=== PATIENT | female | born 1940 | race Caucasian/White ===

== ENCOUNTER 2017-02-01 21:55 | Emergency (ER) | payer OTHER ==
[2017-02-01] MEDS ORDERED: DOPamine 400mg/250ml D5W 400 MG/250 ML BAG IV ONE (22:06)
[2017-02-01 22:07] VITALS: BMI 33.3
[2017-02-01] MEDS ORDERED: Sodium Chloride 0.9% 1,000 ML IV STA (22:07)
[2017-02-01 22:26] LABS: BASO # 0.1 K/uL (0.0-0.2); BASO % 0.9 % (0.0-2.0); EOS # 0.1 K/uL (0.0-0.7); EOS % 0.5 % (0.0-4.0); HEMATOCRIT 35.7 % (34.0-47.0); LYMPH # 5.5 K/uL (1.0-4.3); LYMPH % 48.1 % (20.0-40.0); MEAN CELL VOLUME 96.6 fl (81.0-99.0); MEAN CORPUSCULAR HEMOGLOBIN 27.8 pg (27.0-31.0); MEAN CORPUSCULAR HGB CONC 28.8 g/dL (33.0-37.0); MEAN PLATELET VOLUME 8.8 fl (7.2-11.7); MONO # 0.4 K/uL (0.0-0.8); MONO % 3.2 % (0.0-10.0); NEUT # 5.4 K/uL (1.8-7.0); NEUT % 47.3 % (50.0-75.0); NRBC % 0.1 % (0.0-0.0); RED CELL DISTRIBUTION WIDTH 18.1 % (11.5-14.5); WHITE BLOOD COUNT 11.5 K/uL (4.8-10.8)
[2017-02-01 22:33] LABS: BILIRUBIN,TOTAL 0.4 mg/dl (0.2-1.3); CALCIUM 10.5 mg/dL (8.4-10.2); TOTAL PROTEIN 4.7 G/DL (6.3-8.2)
[2017-02-01 22:35] LABS: POTASSIUM 6.2 MMOL/L (3.6-5.0)
[2017-02-01 22:44] LABS: TROPONIN I 0.06 ng/mL (0.00-0.120)
--- NOTE | 2017-02-01 22:49 | ED PDOC ---
HPI: Cardiac Arrest Time Seen by Provider: 02/01/17 22:28 Chief Complaint (Nursing): Cardiac Arrest Chief Complaint (Provider): cardiac arrest History Per: EMS Reason For Code Blue: Full Arrest Medications Given Prior To MD Arrival: Epinephrine (x4), Sodium Bicarb, Other ( Calcium) - Initial Findings Mentation: Unresponsive Respirations: None (Assisted) Pulse: None Rhythm: PEA (paced rhythm) Past Medical History - Medical History PMH: Anemia, Arthritis, Atrial Fibrillation, Cardia Arrhythmia, Diabetes, HTN, Hypercholesterolemia, Hypothyroidism Denies: Crohn's Disease, Diverticulitis, Fractures, Gastritis, Gall Bladder Disease, HIV, Pancreatitis, Chronic Kidney Disease - Surgical History Surgical History: Pacemaker - Family History Family History: States: Unknown Family Hx - Immunization History Hx Tetanus Toxoid Vaccination: No Hx Influenza Vaccination: No Hx Pneumococcal Vaccination: No - Home Medications Home Medications: Ambulatory Orders Medication Instructions Recorded Bimatoprost [Lumigan] 1 drop OU HS 12/12/16 Febuxostat [Uloric] 40 mg PO DAILY 12/12/16 Folic Acid 1 mg PO DAILY #30 tab 12/22/16 Docusate [Colace] 100 mg PO BID 12/23/16 MetFORMIN [glucoPHAGE] 1,000 mg PO BID 12/23/16 Aspirin [Aspirin Chewable] 81 mg PO DAILY 12/30/16 Brimonidine 0.2% [Alphagan 0.2% 0 ml OU TID #1 bottle 12/30/16 Opht] Rosuvastatin Calcium [Crestor] 10 mg PO HS #30 tab 12/30/16 Ferrous Sulfate [Feosol] 325 mg PO DAILY 01/14/17 Magnesium Hydroxide [Milk Of 400 mg PO DAILY 01/14/17 Magnesia] Ondansetron HCl [Zofran] 4 mg PO DAILY 01/14/17 Sodium Polystyrene Sulfonate 15 gm PO DAILY 01/14/17 [kayeXALATE Oral Susp] Aspirin [Ecotrin] 81 mg PO DAILY 01/19/17 Brimonidine 0.15% [Alphagan P 1 drop OU TID #0 01/19/17 0.15% Opht] Carvedilol [Coreg] 12.5 mg PO BID #60 tab 01/19/17 Imipenem/Cilastatin [Primaxin IV] 500 mg IVPB Q6H #24 vial 01/19/17 Sertraline [Zoloft] 25 mg PO DAILY #30 tab 01/19/17 diltiaZEM [Cardizem] 60 mg PO Q6H #120 tab 01/19/17 - Allergies Allergies/Adverse Reactions: Allergies Allergy/AdvReac Type Severity Reaction Status Date / Time No Known Allergies Allergy Verified 02/01/17 22:02 Review of Systems Review Of Systems: ROS cannot be obtained secondary to pt's inabilty to answer questions. Physical Exam - Reviewed Nursing Documentation Reviewed: Yes Vital Signs Reviewed: Yes - Physical Exam Appears: Positive for: In Acute Distress Head Exam: Positive for: ATRAUMATIC, NORMOCEPHALIC Skin: Positive for: Warm Eye Exam: Positive for: Other (no corneal reflex, fixed pupils) ENT: Positive for: Other (ETT in place, secretions) Neck: Positive for: Trachea Midline Cardiovascular/Chest: Positive for: Other (no cardiac impulse, pacemaker scar with subtle ecchomsis) Respiratory: Positive for: Other (assisted, rhonchi diffusely, R>L) Gastrointestinal/Abdominal: Positive for: Soft. Negative for: Distended Extremity: Positive for: Pedal Edema. Negative for: Deformity Lymphatic: Positive for: Deferred Neurologic/Psych: Positive for: Other (Unresponsive) - Laboratory Results Result Diagrams: 02/01/17 22:25 02/01/17 22:26 - Progress ED Course And Treament: Brief ROSC, afib with wide QRS, with sporadic paced beats. Dopamine initiated. PERLA in anterior leads. Code heart considered but pt's pulse lost again and ACLS protocol restarted. No ROSC achieved. Family was at bedside for brief time during CPR. Informed of immediately after. Time of :22:21 - Physician Consult Information Physician Contacted: Simone Quevedo Disposition - Clinical Impression Clinical Impression: Cardiac arrest - Disposition Disposition Time: 22:25 Condition: Forms: [employer] (Kiswahili)
[2017-02-01 22:50] LABS: PARTIAL THROMBOPLASTIN TIME 62.6 Seconds (25.6-37.1)
--- NOTE | 2017-02-02 07:52 | CARD ---
APPROVED REPORT EKG Measurement Heart [id number] <Conclusion> Atrial fibrillation Left axis deviation Lateral infarct, age undetermined Inferior-posterior infarct, possibly acute ACUTE CT / STEMI Abnormal ECG
--- NOTE | 2017-02-02 09:47 | RAD ---
HISTORY: chest pain COMPARISON: No prior. FINDINGS: LUNGS: The endotracheal tube is in sub optimal position in the right mainstem bronchus. The tube should be pulled back 3 cm. There is an infiltrate at the right lung base. PLEURA: No significant pleural effusion identified, no pneumothorax apparent. CARDIOVASCULAR: Normal. OSSEOUS STRUCTURES: No significant abnormalities. VISUALIZED UPPER ABDOMEN: Normal. OTHER FINDINGS: Single lead pacemaker IMPRESSION: Infiltrate at right lung base. Suboptimal position of the endotracheal tube in the right mainstem bronchus
== END 2017-02-02 02:10 ==
LOC: H.ER 21:55
DX: I46.9 Cardiac arrest, cause unspecified (principal); E11.9 Type 2 diabetes mellitus without complications; I10 Essential (primary) hypertension; I48.91 Unspecified atrial fibrillation; Z95.0 Presence of cardiac pacemaker; Z79.84 Long term (current) use of oral hypoglycemic drugs; Z79.82 Long term (current) use of aspirin; E03.9 Hypothyroidism, unspecified
CPT/HCPCS: 71010; 80053; 83605; 84484; 85025; 85610; 85730; 87040; 92950; 93005; 99285; J0171